=== PATIENT | female | born 1980 | race Caucasian/White ===

== ENCOUNTER → 2016-10-16 | Outpatient (CLI) | payer OTHER ==
[2016-10-16 13:26] LABS: AUTOMATED NEUTROPHIL # 5.2 TH/MM3 (1.8-7.7); BASOPHIL % 0.5 % (0.0-2.0); EOSINOPHIL # 0.2 TH/MM3 (0-0.4); EOSINOPHIL % 2.3 % (0.0-4.0); HEMATOCRIT 38.8 % (35.0-46.0); HEMO FLAGS DIFF FINAL; LYMPH % 29.9 % (9.0-44.0); LYMPHOCYTE # 2.7 TH/MM3 (1.0-4.8); MEAN CELL VOLUME 89.2 FL (80.0-100.0); MEAN CORPUSCULAR HGB CONC 33.7 % (32.0-36.0); MONO % 8.9 % (0.0-8.0); NEUT % 58.4 % (16.0-70.0); PLATELET COUNT 372 TH/MM3 (150-450); RED BLOOD COUNT 4.35 MIL/MM3 (4.00-5.30); RED CELL DISTRIBUTION WIDTH 13.3 % (11.6-17.2)
[2016-10-16 13:32] LABS: BLOOD, URINE SMALL (NEG); COMMENT (UR) CULT NOT INDICATED; CULTURE IF INDICATED CULT NOT INDICATED; GLUCOSE,URINE NEG (NEG); KETONE, URINE NEG (NEG); MUCUS URINE FEW /lpf (OCC); NITRITE,URINE NEG (NEG); PH, URINE 7.5 (5.0-8.5); SQUAMOUS EPITHELIAL CELL URINE 1 /hpf (0-5); URINE COLOR YELLOW (YELLW/STRAW)
[2016-10-16 13:49] LABS: BETA HCG QUANT LESS THAN 1 MIU/ML (0-5)
--- NOTE | 2016-10-17 17:17 | EKG ---
Date Performed: 10/16/2016 Time Performed: 12:51:04 PTAGE: 35 years EKG: Sinus rhythm WITH SINUS ARRHYTHMIA NORMAL ECG NO PREVIOUS TRACING DOCTOR: Zachery Young Interpretating Date/Time 10/17/2016 17:14:11
== END ==
LOC: CPRE 12:19
PROVIDERS: ATTEND Obstetrics & Gynecology
DX: Z01.812 Encounter for preprocedural laboratory examination (principal); Z01.810 Encounter for preprocedural cardiovascular examination; D39.0 Neoplasm of uncertain behavior of uterus; N83.201 Unspecified ovarian cyst, right side
CPT/HCPCS: 36415; 81001; 84702; 85025; 86850; 86900; 86901; 93005

== ENCOUNTER 2016-10-18 12:39 | Observation (INO) | payer OTHER ==
--- NOTE | 2016-10-17 12:41 | MH ---
cc: CARLOS BATEMAN DATE OF ADMISSION: 10/18/2016 ADMISSION DIAGNOSIS Pelvic pain which showed large fibroid. HISTORY OF PRESENT ILLNESS The patient 35-year-old white female para 0-0-1-0 reports being in good health until 09/23/2016 when she awoke with mid right upper quadrant discomfort and she continues not to feel well. She went to the emergency department 09/24/[address] scan showed a solid pelvic mass midline measuring 5.4 x 8.3 cm. Ultrasound the next day showed the same mass which. Pedunculated fibroid, and a simple cyst on right ovary. She reports history of low back pain and painful intercourse. She is now admitted for surgical evaluation. PAST MEDICAL HISTORY Previous surgery none MEDICATIONS None. ALLERGIES Allergies none TRANSFUSIONS None. OBSTETRICAL HISTORY ETP age 18. CONCEPTION: Vasectomy. SOCIAL HISTORY She is employed with the [employer] the [place] in [place]. Alcohol occasional, tobacco half pack a day 20 years. Drugs none. FAMILY HISTORY: Her family history is noncontributory. PHYSICAL EXAMINATION: IN GENERAL: Well-nourished well-developed white female. VITAL SIGNS: Stable. HEAD, EYES, EARS, NOSE, AND THROAT: Exam is normal. CHEST: Chest is clear regular rate. BREASTS: Symmetrical. ABDOMEN: Benign. GYNECOLOGY: Pelvic exam is normal cervix normal uterus enlarged of 14 weeks' size with apparent posterior fibroid. ASSESSMENT As above. PLAN: She is now admitted for laparoscopy with probable LASH procedure, possible DAMARIS with ovarian sparing and cervical sparing if normal. While in the office in procedures, the risks and benefits, complications and longer recovery if larger incisions needed. The patient would like to proceed. MD DAVID Segundo/man /9:54 AM /11:50 AM
[~2016-10-18] VITALS: Ht 157.5 cm; Wt 74.5 kg
[~2016-10-18 12:39] MED LIST: NEOSTIGMINE 3 MG/3 ML SYR IV ONE; ONDANSETRON HCL 4 MG/2 ML VIAL IV PUSH ONE; PROPOFOL 200 MG/20 ML AMP IV ONE
[2016-10-18 13:17] VITALS: BP 115/86; PULSE 72; RESP 16; TEMP 98; O2SAT 100
[2016-10-18] MEDS ORDERED: SODIUM CHLORIDE 0.9% INJ 100 ML ONE (13:34)
[2016-10-18] MEDS ORDERED: ACETAMINOPHEN 1000 MG/100 ML VIAL IV ONE ×2 (13:34→14:34)
[2016-10-18] MEDS ORDERED: ceFAZolin INJ 1,000 MG VIAL ONE (13:34)
[2016-10-18] MEDS ORDERED: ceFAZolin 1,000 MG/NS 100 ML IV SCH ×2 (14:00)
[2016-10-18] MEDS ORDERED: ACETAMINOPHEN 1000 MG/100 ML VIAL IV SCH (14:00)
[2016-10-18] MEDS ORDERED: LACTATED RINGER'S 1000 ML IV PRN (14:15)
[2016-10-18] MEDS ORDERED: POVIDONE IODINE 5% (ANTISEPSIS KIT) 4 APPLICATIONS EACH NARE PRN (14:15)
[2016-10-18] MEDS ORDERED: METOPROLOL TARTRATE 25 MG TAB PO PRN (14:15)
[2016-10-18] MEDS ORDERED: INSULIN HUMAN REGULAR 1,000 UNITS/10 ML VIAL SQ PRN (14:15)
[2016-10-18] MEDS ORDERED: SODIUM CHLORID 0.9% 500 ML IV PRN (14:15)
[2016-10-18] MEDS ORDERED: CHLORHEXIDINE GLUCONATE 2 % 1 PACK (2 CLOTHS) TOPICAL PRN (14:15)
[2016-10-18] MEDS ORDERED: fentaNYL CITRATE 250 MCG/5 ML AMP ONE (14:34)
[2016-10-18] MEDS ORDERED: DICLOFENAC SODIUM 37.5 MG/ML VIAL IV PUSH ONE (14:34)
[2016-10-18] MEDS ORDERED: FAMOTIDINE 20 MG/2 ML VIAL ONE (14:55)
[2016-10-18] MEDS ORDERED: MIDAZOLAM HCL 2 MG/2 ML VIAL ONE (14:55)
[2016-10-18] MEDS ORDERED: ZOLPIDEM TARTRATE 5 MG TAB PO PRN (16:45)
[2016-10-18] MEDS ORDERED: PROMETHAZINE HCL 25 MG TAB PO PRN (16:45)
[2016-10-18] MEDS ORDERED: SODIUM CHLORIDE 0.9% FLUSH 5 ML FLUSH FLUSH PRN (16:45)
[2016-10-18] MEDS ORDERED: ONDANSETRON ODT 4 MG TAB PO PRN (16:45)
[2016-10-18] MEDS ORDERED: ONDANSETRON HCL 4 MG/2 ML VIAL IV PRN (16:45)
[2016-10-18] MEDS ORDERED: HYDROmorphone HCL PF 1 MG/ML VIAL IV PRN (16:45)
[2016-10-18] MEDS ORDERED: METOCLOPRAMIDE HCL 10 MG/2 ML VIAL IV PUSH PRN (16:45)
[2016-10-18] MEDS: D5-1/2 NS + KCL 20 MEQ INJ 1,000 ML IV SCH (17:00)
[2016-10-18] MEDS ORDERED: *morphine SULFATE 8 MG/ML PERIprocedure ONLY ONE (17:19)
[2016-10-18 18:46] VITALS: BP 123/70; PULSE 78; RESP 16; TEMP 96.4; O2SAT 97
[2016-10-18 19:08] LABS: HEMATOCRIT 41.3 % (35.0-46.0); REVIEW FLAG FINAL
[2016-10-18 20:00] VITALS: BP 109/67; PULSE 69; RESP 16; TEMP 96.8; O2SAT 99
[2016-10-18] MEDS: SODIUM CHLORIDE 0.9% FLUSH 5 ML FLUSH FLUSH SCH (20:15)
[2016-10-18] MEDS: DICLOFENAC SODIUM 37.5 MG/ML VIAL IV PUSH SCH (21:39)
[2016-10-18] MEDS: DOCUSATE SODIUM 100 MG CAP PO SCH (21:40)
[2016-10-18] MEDS: ACETAMINOPHEN 1000 MG/100 ML VIAL IV SCH (21:46)
[2016-10-19] VITALS: BP 114/71; PULSE 62; RESP 17; TEMP 96.7; O2SAT 95
[2016-10-19 00:17] VITALS: O2SAT 97
[2016-10-19] MEDS: D5-1/2 NS + KCL 20 MEQ INJ 1,000 ML IV SCH ×2 (01:30→08:25)
[2016-10-19] MEDS: DICLOFENAC SODIUM 37.5 MG/ML VIAL IV PUSH SCH ×2 (03:12→08:25)
[2016-10-19 05:00] VITALS: BP 128/57; PULSE 53; RESP 17; TEMP 97.5; O2SAT 95
[2016-10-19] MEDS: DOCUSATE SODIUM 100 MG CAP PO SCH (05:03)
[2016-10-19] MEDS: ACETAMINOPHEN 1000 MG/100 ML VIAL IV SCH (05:03)
[2016-10-19 08:00] VITALS: BP 108/62; PULSE 58; RESP 18; TEMP 97.6; O2SAT 98
[2016-10-19 08:09] LABS: AUTOMATED NEUTROPHIL # 9.8 TH/MM3 (1.8-7.7); BASOPHIL % 0.1 % (0.0-2.0); EOSINOPHIL % 0.1 % (0.0-4.0); HEMATOCRIT 33.8 % (35.0-46.0); HEMO FLAGS DIFF FINAL; LYMPH % 13.7 % (9.0-44.0); LYMPHOCYTE # 1.7 TH/MM3 (1.0-4.8); MEAN CELL VOLUME 89.6 FL (80.0-100.0); MEAN CORPUSCULAR HEMOGLOBIN 30.2 PG (27.0-34.0); MEAN CORPUSCULAR HGB CONC 33.7 % (32.0-36.0); MONO % 6.6 % (0.0-8.0); NEUT % 79.5 % (16.0-70.0); PLATELET COUNT 334 TH/MM3 (150-450); RED BLOOD COUNT 3.77 MIL/MM3 (4.00-5.30); WHITE BLOOD COUNT 12.3 TH/MM3 (4.0-11.0)
[2016-10-19 08:16] VITALS: O2SAT 97
[2016-10-19 08:36] LABS: BICARBONATE 24.3 MEQ/L (21.0-32.0); POTASSIUM 5.4 MEQ/L (3.5-5.1)
[2016-10-19] MEDS: SODIUM CHLORIDE 0.9% FLUSH 5 ML FLUSH FLUSH SCH (09:00)
[2016-10-19 12:00] VITALS: BP 116/65; PULSE 55; RESP 18; TEMP 96.7; O2SAT 98
--- NOTE | 2016-10-20 15:34 | MP ---
cc: CARLOS BATEMAN M.D. DATE OF SURGERY: 10/10/2016 PREOPERATIVE DIAGNOSIS: Pelvic pain, large fibroid. POSTOPERATIVE DIAGNOSIS: Pelvic pain, large fibroid. OPERATION: Laparoscopy with a LASH and bilateral salpingectomy. ANESTHESIA: General endotracheal tube. SURGEON: Carlos Bateman MD [employer] MANAGER: Jann. ESTIMATED BLOOD LOSS: About 50 cc. FLUIDS: One liter crystalloid. OBJECTIVE FINDINGS Following induction of adequate general endotracheal anesthesia the patient was prepped and draped supine on the operating table dorsal lithotomy position in sterile fashion. With the bladder being drained via Grier catheterization. The abdomen opened through a 3-cm curving for incision using a knife to cut down through skin to the fascia. The fascia opened transversely. Stripped the muscles, split in the midline and the peritoneum opened bluntly. Palpation was normal. The mini GelPort was placed laparoscope inserted a 5 port placed in the left lower quadrant and a air seal port in the right lower quadrant. There is a large 8 cm right fundal pedunctulated fibroid. Uterus is about 10 weeks' size with small fibroids, tubes are normal, cul-de-sacs were clear. Liver edge was normal. To facilitate the removal of the specimen the fibroid was held with a tenaculum. The harmonic scalpel used to cut across the base of the fibroid was placed in a pouch extracted intact about 8 cms, then working on the left the left mesosalpinx was taken with harmonic scalpel, left round ligament, left broad ligament and left-sided bladder flap. The left uterine vessel taken the harmonic and same on the right harmonic scalpel now used to amputate the fundus of the cervix and the fundus and tubes were extracted and the pouch intact. Irrigation was performed, one area of bleeding on the right broad ligament was controlled with a Harmonic scalpel. Ureters inspected. Good peristalsis. Low pressure test no bleeding. The operative sites were coated with the Eviseal , the GelPort was removed. The peritoneum sutured running stitch of 2-0 Vicryl. The fascia with a running locking stitch of Vicryl corner midline tied, Subcu running 3-0 Vicryl and skin with subcuticular 3-0 Monocryl. The scope was now reinserted through lower port used to inspect the GelPort site which was well closed, no entrapment. Pelvis inspected, no bleeding. The scope was removed, gas allowed to escape. Ports removed, sutured with 3-0 Monocryl. Dermabond applied. Counts correct and the patient was awake taken to Recovery Room in good condition. MD DAVID Segundo/man /4:45 PM /3:34 PM [id number]
== END 2016-10-19 14:08 | disposition home or self-care (01) ==
LOC: HSDC 12:39 → HSDI 16:37 → HOCA 18:41
PROVIDERS: ADMIT Obstetrics & Gynecology; ATTEND Obstetrics & Gynecology
DX: R10.2 Pelvic and perineal pain (principal); D26.1 Other benign neoplasm of corpus uteri; D25.2 Subserosal leiomyoma of uterus; N83.8 Other noninflammatory disorders of ovary, fallopian tube and broad ligament; N83.291 Other ovarian cyst, right side; M54.5 Low back pain; N94.10 Unspecified dyspareunia
CPT/HCPCS: 00840; 58542; 80048; 85014; 85018; 85025; 88307; 94150; G0378; J0131; J0690; J1130; J2250; J2270; J2405; J2710; J3010; J3480

== ENCOUNTER → 2016-11-01 | Outpatient (CLI) | payer OTHER ==
[2016-11-01 11:25] LABS: BLOOD, URINE SMALL (NEG); COMMENT (UR) CULT NOT INDICATED; CULTURE IF INDICATED CULT NOT INDICATED; GLUCOSE,URINE NEG (NEG); KETONE, URINE NEG (NEG); NITRITE,URINE NEG (NEG); PH, URINE 5.5 (5.0-8.5); SQUAMOUS EPITHELIAL CELL URINE 6 /hpf (0-5); URINE COLOR YELLOW (YELLW/STRAW)
== END ==
LOC: CLAB 10:13
PROVIDERS: ATTEND Obstetrics & Gynecology
DX: N39.0 Urinary tract infection, site not specified (principal)
CPT/HCPCS: 81001